=== PATIENT | male | born 1955 | race Caucasian/White ===

== ENCOUNTER 2024-01-23 08:50 | Outpatient (RCR) | payer OTHER, SELFPAY | END 2024-01-23 23:59 | disposition home or self-care (01) | LOC: RPT 08:50 | PROVIDERS: ATTENDING PHYSICIAN Orthopaedic Surgery; FAMILY PHYSICIAN Physician Assistant | DX: M76.51 Patellar tendinitis, right knee (principal); M25.561 Pain in right knee; M17.11 Unilateral primary osteoarthritis, right knee; R26.89 Other abnormalities of gait and mobility; R26.2 Difficulty in walking, not elsewhere classified; M62.81 Muscle weakness (generalized); Z73.6 Limitation of activities due to disability | CPT/HCPCS: 97010; 97110; 97140; 97162 ==

== ENCOUNTER 2024-02-24 06:36 | Outpatient (RCR) | payer OTHER, SELFPAY | END 2024-02-24 23:59 | disposition home or self-care (01) | LOC: RPT 06:36 | PROVIDERS: ATTENDING PHYSICIAN Orthopaedic Surgery; FAMILY PHYSICIAN Physician Assistant | DX: M76.51 Patellar tendinitis, right knee (principal); M25.561 Pain in right knee; M17.11 Unilateral primary osteoarthritis, right knee; R26.89 Other abnormalities of gait and mobility | CPT/HCPCS: 97110; 97112 ==

== ENCOUNTER 2024-02-27 07:52 | Outpatient (RCR) | payer OTHER, SELFPAY | END 2024-02-27 23:59 | disposition home or self-care (01) | LOC: RPT 07:52 | PROVIDERS: ATTENDING PHYSICIAN Orthopaedic Surgery; FAMILY PHYSICIAN Physician Assistant | DX: M76.51 Patellar tendinitis, right knee (principal); M25.561 Pain in right knee; M17.11 Unilateral primary osteoarthritis, right knee; R26.89 Other abnormalities of gait and mobility | CPT/HCPCS: 97110; 97112 ==

== ENCOUNTER → 2024-03-26 18:24 | Outpatient (REF) | payer OTHER, SELFPAY | LOC: PAVMRI 18:24 | PROVIDERS: ATTENDING PHYSICIAN Psychiatry & Neurology Behavioral Neurology & Neuropsychiatry; FAMILY PHYSICIAN Physician Assistant | DX: G30.9 Alzheimer's disease, unspecified (principal) | CPT/HCPCS: 70551 ==

== ENCOUNTER → 2024-10-04 14:14 | Outpatient (REF) | payer OTHER, SELFPAY | LOC: HWRAD 14:14 | PROVIDERS: ATTENDING PHYSICIAN Physician Assistant | DX: R10.11 Right upper quadrant pain (principal); R39.15 Urgency of urination | CPT/HCPCS: 76700; 76770 ==

== ENCOUNTER 2025-04-29 06:19 | Day surgery (SDC) | payer OTHER, SELFPAY | END 2025-04-29 16:07 | disposition home or self-care (01) | LOC: GI 06:19 | PROVIDERS: ATTENDING PHYSICIAN Internal Medicine Gastroenterology | DX: K52.9 Noninfective gastroenteritis and colitis, unspecified (principal); K64.8 Other hemorrhoids; K62.89 Other specified diseases of anus and rectum; K62.1 Rectal polyp | CPT/HCPCS: 45380; 88305 ==